=== PATIENT | male | born 1975 | race African-American/Black ===

== ENCOUNTER 2016-10-07 11:42 | Emergency (ER) | payer MEDICAID ==
[~2016-10-07] VITALS: Ht 172.7 cm; Wt 72.0 kg
[2016-10-07 11:45] VITALS: BP 114/65
== END 2016-10-07 13:17 | disposition home or self-care (01) ==
LOC: ER 11:45
DX: S81.812D Laceration without foreign body, left lower leg, subsequent encounter (principal); Z88.0 Allergy status to penicillin; F16.10 Hallucinogen abuse, uncomplicated; X58.XXXD Exposure to other specified factors, subsequent encounter
CPT/HCPCS: 99283

== ENCOUNTER 2019-03-21 13:40 | Emergency (ER) | payer MEDICAID ==
[~2019-03-21] VITALS: Ht 172.7 cm; Wt 75.0 kg
[2019-03-21 13:50] VITALS: BP 131/90
[2019-03-21] MEDS ORDERED: IBUPROFEN 600MG TABLET PO ONE (14:30)
== END 2019-03-21 14:38 | disposition home or self-care (01) ==
LOC: ER 13:40
DX: Z59.0 Homelessness (principal); G89.29 Other chronic pain; F20.9 Schizophrenia, unspecified; F17.200 Nicotine dependence, unspecified, uncomplicated; Z88.0 Allergy status to penicillin
CPT/HCPCS: 99283